=== PATIENT | male | born 1955 | race Caucasian/White ===

== ENCOUNTER → 2019-10-11 | Outpatient (CLI) | payer BC ==
[~2019-10-11] MED LIST: AMIT50TA PO; AMLO5TAB10 PO; ASPI-630 PO; ASPI325T11 PO; ATOR20TA58 PO; BUPR100T8 PO; LOSA100T14 PO; METF500T16 PO; SITA100T PO; TAMS0.4C97 PO
[2019-10-11 15:23] LABS: BASO % 0 % (0-3); EOS # 0.1 x10^3/uL (0.0-0.7); EOS % 1 % (0-3); HEMATOCRIT 44.8 % (39.0-53.0); HEMOGLOBIN 15.3 g/dL (13.0-17.5); LYMPH # 1.9 x10^3/uL (1.0-4.8); LYMPH % 23 % (24-48); MEAN CORPUSCULAR HEMOGLOBIN 29 pg (25-35); MEAN CORPUSCULAR HGB CONC 34 g/dL (31-37); MEAN CORPUSCULAR VOLUME 86 fL (79-100); MONO # 0.6 x10^3/uL (0.0-1.1); MONO % 8 % (0-9); NEUT # 5.6 x10^3/uL (1.8-7.7); NEUT % 68 % (31-73); PLATELET COUNT 184 x10^3/uL (140-400); RED BLOOD COUNT 5.23 x10^6/uL (4.30-5.70); RED CELL DISTRIBUTION WIDTH 14.1 % (11.5-14.5); WHITE BLOOD COUNT 8.2 x10^3/uL (4.0-11.0)
[2019-10-11 15:30] LABS: PROTHROMBIN TIME PATIENT 13.7 SEC (11.7-14.0)
[2019-10-11 15:42] LABS: ALBUMIN 3.7 g/dL (3.4-5.0); CALCIUM 8.9 mg/dL (8.5-10.1); CREATININE 1.7 mg/dL (0.7-1.3); GFR 40.9; POTASSIUM 4.3 mmol/L (3.5-5.1)
--- NOTE | 2019-10-11 15:45 | EKG ---
[facility] [address] [place] [address] Test Date: 2019-10-11 Test Time: 15:42:43 Pat Name: SIVAN RAMIREZ Department: Room: Gender: M Bolt Labeler: : 1955 Requested By: EDU CALLOWAY Order Number: [id number] Reading MD: Sudhir Skinner MD Measurements Intervals Cobb Rate: 82 P: 28 IN: 190 QRS: -52 QRSD: 86 T: 53 QT: 352 QTc: 414 Interpretive Statements SINUS RHYTHM Electronically Signed On 10-13-2019 11:49:42 CDT by Sudhir Skinner MD
--- NOTE | 2019-10-11 16:28 | RAD ---
CHEST PA LATERAL History: Preop right knee replacement, history of hypertension Comparison: None. Findings: 2 views of the chest are submitted. There is no infiltrate, pneumothorax, or effusion. Pericardial cardiac silhouette is within normal limits in size. Impression: 1. There is no radiographic evidence of acute cardiopulmonary disease. Electronically signed by: Toño Barlow MD (10/11/2019 4:25 PM) [id number]
[2019-10-12 07:14] LABS: HEMOGLOBIN A1C 5.6 % (4.8-5.6)
== END ==
LOC: SURGPAT 14:28
PROVIDERS: ATTEND Orthopaedic Surgery
DX: Z01.818 Encounter for other preprocedural examination (principal); M17.11 Unilateral primary osteoarthritis, right knee
CPT/HCPCS: 36415; 71046; 80048; 82040; 82306; 83036; 85025; 85610; 85651; 85730; 87641; 93005

== ENCOUNTER → 2019-10-28 | Outpatient (CLI) | payer BC | END | disposition home or self-care (01) | LOC: LAB 07:38 | PROVIDERS: ATTEND Orthopaedic Surgery | DX: Z11.59 Encounter for screening for other viral diseases (principal); M17.11 Unilateral primary osteoarthritis, right knee | CPT/HCPCS: C9803; U0003; 36415 ==

== ENCOUNTER 2019-11-01 05:44 | Inpatient (IN) | payer BC ==
--- NOTE | 2019-10-31 18:23 | PDOC1 ---
History and Physical Date of Admission Date of Admission 11/01/2019 Identification/Chief Complaint Chief Complaint Right knee osteoarthritis pain Source Source: Chart review History of Present Illness History of Present Illness Sivan is a 64-year-old man with long history of right knee pain. 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 He had a left total knee arthroplasty 10/15/[address] Geraldo Ring. He has right knee pain that bothers him every day and prevents him from walking for exercise. He had a cortisone injection into his knee that gave only temporary relief. He has chronic kidney disease and a single kidney and so NSAIDs are avoided to treat his knee pain Past Medical History Past Medical History Type 2 diabetes. Chronic kidney disease. Gout. Hypertension. Depression. Hyperglycemia. Hypogonadism. Neuropathy. Cardiovascular: HTN CENTRAL NERVOUS SYSTEM: Periperal neuropathy Psych: Depression Rheumatologic: Gout Endocrine: Diabetes Past Surgical History Past Surgical History knee replacement-Lt 2017 carpal tunnel release x3 bilat elbow surgery bunionectomy heel surgery Past Surgical History: Total knee replacement Family History Family History Type 2 diabetes mother alive Father , diabetes, heart disease Family history hypertension heart disease and diabetes Family History: Diabetes, Heart Disease, Hypertension Social History Smoke: Quit ALCOHOL: none Current Medications Current Medications Current Medications Morphine Sulfate 5 mg/Ketorolac Tromethamine 30 mg/Ropivacaine 60 ml/Epinephrine HCl 0.5 mg/Sodium Chloride 100 ml @ 100 mls/hr 1X ONCE INT ART ; Start 11/01/19 at 06:00; Stop 11/01/19 at 06:59 Ondansetron HCl (Zofran) 4 mg PRN Q6HRS PRN IV NAUSEA/VOMITING; Start 11/01/19 at 07:00; Stop 11/02/19 at 06:59 Fentanyl Citrate (Fentanyl 2ml Vial) 25 mcg PRN Q5MIN PRN IV MILD PAIN 1-3; Start 11/01/19 at 07:00; Stop 11/02/19 at 06:59 Fentanyl Citrate (Fentanyl 2ml Vial) 50 mcg PRN Q5MIN PRN IV MODERATE TO SEVERE PAIN; Start 11/01/19 at 07:00; Stop 11/02/19 at 06:59 Morphine Sulfate (Morphine Sulfate) 1 mg PRN Q10MIN PRN IV SEVERE PAIN 7-10; Start 11/01/19 at 07:00; Stop 11/02/19 at 06:59 Ringer's Solution 1,000 ml @ 30 mls/hr Q24H IV ; Start 11/01/19 at 07:00; Stop 11/01/19 at 18:59 Hydromorphone HCl (Dilaudid) 0.5 mg PRN Q10MIN PRN IV SEV PAIN, Second choice; Start 11/01/19 at 07:00; Stop 11/02/19 at 06:59 Prochlorperazine Edisylate (Compazine) 5 mg PACU PRN PRN IV NAUSEA, MRX1; Start 11/01/19 at 07:00; Stop 11/02/19 at 06:59 Acetaminophen (Tylenol) 1,000 mg 1X PREOP PRN PO PRIOR TO PROCEDURE; Start 11/01/19 at 06:00; Stop 11/01/19 at 18:00 Cefazolin Sodium 3 gm/Dextrose 100 ml @ 200 mls/hr 1X PREOP PRN IV PRIOR TO PROCEDURE; Start 11/01/19 at 06:00; Stop 11/01/19 at 18:00 Tranexamic Acid 1000 mg/Sodium Chloride 60 ml @ 60 mls/hr 1X PERIOP ONCE INJ ; Start 11/01/19 at 06:00; Stop 11/01/19 at 06:59 Tranexamic Acid 1000 mg/Sodium Chloride 60 ml @ 60 mls/hr 1X PERIOP ONCE INJ ; Start 11/01/19 at 08:00; Stop 11/01/19 at 08:59 Celecoxib (CeleBREX) 400 mg 1X PREOP PRN PO SURGERY; Start 11/01/19 at 06:00 Active Scripts Active Reported Amlodipine Besylate 5 Mg Tablet 5 Mg PO DAILY Aspirin 81 Mg Tab.chew 1 Tab PO DAILY Bupropion Hcl Sr (Bupropion Hcl) 100 Mg Tablet.er 150 Mg PO DAILY Losartan Potassium 100 Mg Tablet 100 Mg PO DAILY Flomax (Tamsulosin Hcl) 0.4 Mg Cap.er.24h 1 Cap PO DAILY Metformin Hcl 500 Mg Tablet 1,000 Mg PO DAILY Amitriptyline Hcl 50 Mg Tablet 1 Tab PO QHS Atorvastatin Calcium 20 Mg Tablet 1 Tab PO DAILY Januvia (Sitagliptin Phosphate) 100 Mg Tablet 1 Tab PO DAILY Allergies Allergies: Coded Allergies: No Known Drug Allergies (Unverified , 10/11/19) ROS Review of System OPHTHALMOLOGY: Blurred vision none. Double vision denies. Change in vision none. ENT: Hearing loss none. Change in voice denies. Rhinorrhea none. CARDIOLOGY: Palpitations none. Shortness of breath denies. Chest pain denies. CONSTITUTIONAL: Fever denies. Chills denies. Weight gain denies. Weakness none. weight loss denies. Fatigue none. GASTROENTEROLOGY: Diarrhea denies. Vomiting none. Dysphagia none. UROLOGY: Voiding normally yes. Hematuria none. MUSCULOSKELETAL: Chronic back or neck pain denies. Swelling of the feet, hands, ankles and /or legs denies. Joint pain reports. Tingling/numbness no. DERMATOLOGY: Rash denies. Lumps none. NEUROLOGY: Dizziness/lightheadedness denies. Double vision, temporary blindness denies. Tingling/numbness none. PSYCHOLOGY: Change in mood or personality denies. Memory loss none. ENDOCRINOLOGY: Obesity denies. Fatigue none. Weight loss none. HEMATOLOGY/LYMPH: Hepatitis denies. Enlarged lymph nodes denies. Physical Exam General: Alert, Cooperative HEENT: Atraumatic Lungs: Normal air movement Heart: RRR Extremities: Other (The RIGHT knee shows a slightly antalgic gait. There is slight varus alignment. No masses. No detectable effusion. Tenderness on the joint lines. Range of motion is 0-135 degrees. There is crepitus with range of motion, and pain at the extremes of motion. The knee is stable to varus and valgus stress without subluxation or laxity. Muscle strength is slightly weak for the quadriceps 4+/5 which may be due to pain or avoidance, and does not seem neurogenic, and the muscle tone and bulk is slightly decreased. The hamstring strength is 5/5. The skin is normal with no scars, rashes, lesions or ulcers. Light touch sensation is intact. No edema and no varicosities. Dorsalis pedis pulse is intact and capillary refill is normal) Skin: No breakdown, No significant lesion Neuro: Normal speech Psych/Mental Status: Mood NL Images Images Right knee images were reviewed, the report is not yet available. He has [id number] arthritis medially of the right knee with sclerosis and osteophyte formation. There is varus malalignment. Osteophytes are present in all 3 compartments. This is Kellgren Huber grade 3 osteoarthritis of the right knee. He has a left total knee arthroplasty which is likely Giovanna components, and appears well-positioned and without complication. EDU CALLOWAY 06/16/2019 02:17:59 PM COMMUNICATIONS SUPERVISOR > Report also reviewed. [facility] [address] [place] [address] IMAGING REPORT Signed PATIENT: SIVAN RAMIREZ ACCOUNT: [id number] : 1955 LOCATION: [facility] AGE: 63 SEX: M EXAM STATUS: REG CLI ORD. PHYSICIAN: EDU CALLOWAY MD REASON: PROCEDURE: KNEE RIGHT 2V EXAM: 1. KNEE STANDING BILAT AP, 2. KNEE RIGHT 2V. HISTORY: Right knee pain. COMPARISON: None. FINDINGS: A left total knee arthroplasty is in expected alignment. The right medial compartmental joint space is effaced with varus angulation. There is moderate patellofemoral joint space narrowing. No fractures are identified. There is a moderate joint effusion on the left. IMPRESSION: 1. Severe medial compartment predominant osteoarthritis of the right knee with varus angulation. 2. Left total knee arthroplasty in expected alignment. Electronically signed by: Addy Dunlap MD (06/16/2019 11:04 AM) [facility] DICTATED and SIGNED BY: STEPHANIE DUNLAP MD DATE: 06/16/19 1104 VTE Prophylaxis Ordered VTE Prophylaxis Devices: Yes VTE Pharmacological Prophylaxi: Yes Assessment/Plan Assessment/Plan He has [id number]-[id number] osteoarthritis of his right knee. We reviewed the options for treatment and I recommended total knee replacement as more conservative treatments have not been successful and he describes debilitating osteoarthritis symptoms. We discussed the potential risks of infection, neurovascular injury, fracture, bleeding, blood clots, malalignment, need for revision surgery, or other potential surgical or anesthetic complications. I recommended the robotic Navio instrumentation and we discussed my reasoning. We also discussed postoperative treatment and expectations including residual numbness over the knee and the increased risk due to diabetes. All of his questions were answered and he desires to proceed with total knee replacement. He is here today for elective right total knee arthroplasty, robotic assisted Justicifation of Admission Dx: Justifications for Admission: Justification of Admission Dx: N/A EDU CALLOWAY MD Oct 31, 2019 18:23
[2019-11-01] VITALS (9 sets, daily range): BP systolic 122–140; BP diastolic 64–86
[~2019-11-01] VITALS: Ht 186.7 cm; Wt 123.8 kg
[~2019-11-01 05:44] MED LIST changes: -ASPI325T11 PO
[2019-11-01] MEDS ORDERED: ceFAZolin SODIUM 3 GM in IV D5W 100 ML IV PRN (06:00)
[2019-11-01] MEDS ORDERED: MORPHINE SULFATE 5 MG, KETOROLAC 30MG VIAL 30 MG, ROPIVacaine 0.5% PF 60 ML, EPINEPHrin... INT ART ONE ×5 (06:00)
[2019-11-01] MEDS ORDERED: TRANEXAMIC ACID 1,000 MG in IV NS 50ML -- 1ST BAG INJ ONE (06:00)
[2019-11-01] MEDS ORDERED: CELECOXIB 100 MG CAPSULE. PO PRN (06:00)
[2019-11-01] MEDS ORDERED: ACETAMINOPHEN 500 MG TABLET PO PRN (06:00)
[2019-11-01] MEDS ORDERED: ROCURONIUM 50 MG/5 ML VIAL. ONE (06:54)
[2019-11-01] MEDS ORDERED: MIDAZOLAM HCL/PF 2 MG/2 ML VIAL. ONE (06:54)
[2019-11-01] MEDS ORDERED: GLYCOPYRROLATE 1 MG/5 ML VIAL. ONE (06:54)
[2019-11-01] MEDS ORDERED: PROPOFOL 10 MG/ML (20ML) VIAL. IV ONE (06:54)
[2019-11-01] MEDS ORDERED: NEOSTIGMINE METHYLSULFATE 5 MG/5 ML SYRINGE. ONE (06:54)
[2019-11-01] MEDS ORDERED: fentaNYL PF VIAL 100 MCG/2 ML VIAL ONE ×3 (06:54→09:12)
[2019-11-01] MEDS ORDERED: LIDOCAINE 2% PF 5 ML VIAL. ONE (06:55)
[2019-11-01] MEDS ORDERED: ONDANSETRON PF 4 MG/2 ML VIAL. ONE (06:55)
[2019-11-01] MEDS ORDERED: DEXAMETHASONE SOD PHOS 4 MG/ML VIAL ONE (06:55)
[2019-11-01] MEDS ORDERED: TOBRAMYCIN POWDER 1.2 GM VIAL. ONE (06:57)
[2019-11-01] MEDS ORDERED: VANCOMYCIN 1 GM VIAL. ONE ×2 (06:57→06:58)
[2019-11-01] MEDS: INSULIN LISPRO 100 UNIT/ML 3ML VIAL for OP,RR ONLY. SQ PRN ×3 (06:58→11:26)
[2019-11-01] MEDS ORDERED: IV RINGERS,LACTATED 1000ML 1,000 ML IV SCH (07:00)
[2019-11-01] MEDS ORDERED: ONDANSETRON PF 4 MG/2 ML VIAL. IV PRN (07:00)
[2019-11-01] MEDS ORDERED: fentaNYL PF VIAL 100 MCG/2 ML VIAL IV PRN ×2 (07:00)
[2019-11-01] MEDS ORDERED: PROCHLORPERAZINE 10 MG/2 ML VIAL. IV PRN (07:00)
[2019-11-01] MEDS ORDERED: MORPHINE SULFATE 2 MG/ML VIAL. IV PRN (07:00)
[2019-11-01] MEDS ORDERED: HYDROmorphone 2 MG/ML VIAL IV PRN (07:00)
[2019-11-01] MEDS ORDERED: PHENYLEPHRINE in 0.9% NACL PF 1 MG/10 ML SYRINGE. IV ONE (07:42)
[2019-11-01] MEDS ORDERED: TRANEXAMIC ACID 1,000 MG in IV NS 50ML -- 2ND BAG INJ ONE (08:00)
[2019-11-01] MEDS ORDERED: IV NORMAL SALINE 1000ML BAG 1,000 ML IV SCH (10:10)
--- NOTE | 2019-11-01 10:10 | PDOC4 ---
Operative Note Operative Note Date of Procedure: November 01, 2019 Pre-Op Diagnosis: Unilateral primary osteoarthritis, right knee. M17.11 Post-Op Diagnosis: same Procedure: right total knee arthroplasty with patella resurfacing, robotic assisted, CPT 51763 Surgeon: Edu Thapa MD Target Worker: ROXANNE Chambers Anesthesia: General EBL: 200 mL Specimens Obtained: right knee bone and soft tissue Complications: none Drains: Hemovac plus pain catheter Tourniquet time: 77 Minutes Tourniquet Pressure: 300 mm Hg Indications for Procedure: Knee arthritis pain, affecting quality of life, unrelieved by nonoperative management Findings: Severe osteoarthritis with bone on bone contact medially with full thickness cartilage loss in the patellofemoral and lateral compartments, eburnated bone at the medial tibiofemoral joint and at the lateral patella Implants: Enriquez & Nephew Journey II Total Knee System, Size 6 right bicruciate stabilized Journey II BCS cobalt chrome femoral component, size 5 right Journey nonporous tibial baseplate, size 5-6 11 mm right Journey II BCS XLPE articular insert, 32 mm oval Tasia II resurfacing patellar component Procedure in Detail: The patient was identified in the preoperative holding area, and the correct right lower extremity was marked by me. The patient was taken to the operating room where the patient was anesthetized by the Department of Anesthesia. Preoperative antibiotics were given intravenously. Tranexamic acid 1 g was given intravenously for intraoperative hemostasis. A "time-out" procedure was performed. The patient was positioned supine on the operative table with a tourniquet on the upper right thigh. A right hip bump and heel bump were attached to the operating table for later intraoperative positioning. The right lower limb was thoroughly scrubbed, then sterile Chloraprep solution was applied, and the limb was draped in sterile fashion. The operating team wore exhaust ventilated hoods with [employer] Personal Protection Toga Zippered Peel-Away protection system. An impervious stockinet and an adhesive drape were used such that the skin was entirely covered. The limb was exsanguinated with an Esmarch bandage, and the tourniquet was inflated. A midline skin incision was made with a scalpel using the patella and tibial tubercle as landmarks. Electrocautery was used for hemostasis. My assistant county attorney used rake retractors and a laparotomy sponge. A medial parapatellar arthrotomy incision was used with extension into the distal quadriceps tendon. The patella was retracted laterally and Hohmann retractors were now used by my assistant county attorney. Excess synovium, the menisci, and the cruciate ligaments were resected sharply. A periarticular multimodal ropivacaine anesthetic injection was used in the suprapatellar pouch and distal quadriceps muscle. The patella was everted and exposed. The patella thickness was measured with a caliper, and then cut freehand with a saw, using caliper measurements to assess the resection. The lateral retinaculum was partially released from the lateral patella using electrocautery. Rongeurs were used to make sure there were no remaining exposed patellar osteophytes medially or laterally. The patella was sized, and then drilled for an oval three-peg patella component. The tibial tracker array for the NAVIO system was applied to the tibial crest four finger breadths below the tibial tubercle, using percutaneous incisions and bicortical pins. The femoral tracker array was applied outside of the original incision using two separate stab incisions using bicortical pins. Checkpoint verification pins were applied to the femur and tibia. Using the point probe, the medial and lateral malleoli were localized and the locations were stored. The center of the tibia was noted at the anterior cruciate ligament insertion and stored. The center of the femur was marked at the intersection of Whitesidess line with the transepicondylar axis. The hip center calculation was performed with range of motion of the hip. The femur neutral position was identified, and simulated weightbearing was performed with axial compression on the foot. Range of motion without stress was performed and the data collected. Range of motion with valgus stress, and range of motion with varus stress data collection was also performed. Rotational references include the Whitesidess line, and the trans-epicondylar axis. The femoral articular surface was now mapped in 3 dimensions using the point probe and digital data collected. The tibial condyle articular surfaces and cortical edges were mapped in 3 dimensions using the point probe including the medial and lateral tibial plateau. Implant planning was now performed on-screen with manipulation of the implant sizes, cut thicknesses and gaps, component rotation, component flexion/extension and component varus/valgus until satisfactory ligament balance, alignment and stability of the knee was expected throughout the range of motion. My assistant county attorney held Hohmann retractors and an Army-Soper retractor to protect the medial and lateral collateral ligaments, the patellar tendon, the skin and the other soft tissues. The point probe was used to confirm the location of the checkpoint verification pins. The distal femoral surface was now prepared using the Anspach xiomara with footpedal, and the NAVIO handpiece for bone removal to the previously planned distal femoral resection. The crosshairs at the pin locations were marked by using a mallet and the point probe for definitive location. A 5-in-1 Journey II cutting guide was then applied and the position was checked with the virtual robert wing from the NAVIO to ensure proper placement as the pins were applied. The posterior, anterior, and all chamfer cuts were made with the oscillating saw. Excess bone was removed with an osteotome and rongeurs. The tibial cutting guide was applied, positioned using the NAVIO virtual robert wing, and secured to the upper tibia using three pins at the previously planned location. The virtual robert wing was used to confirm the resection depth, slope and coronal alignment. The upper tibia was cut made with an oscillating saw. My assistant county attorney held Hohmann retractors and a posterior cruciate ligament retractor to protect the medial and lateral collateral ligaments, the patellar tendon, the skin, the peroneal nerve and the other soft tissues. The upper tibia was sized with a trial baseplate. The posterior compartment was cleared of osteophytes and loose bodies. The periarticular anesthetic injection was used in the posterior compartment. The box cut for a posterior stabilized component was made. A preliminary reduction was performed with a trial femur, trial tibial baseplate and trial polyethylene. The NAVIO system was used to confirm range of motion, and postoperative stressed gap assessment. A medial release was required, using a 10 blade scalpel, and a Tejada elevator to elevate the medial structures from the upper medial tibia. The stability was assessed using different thicknesses of tibial articular surface to find satisfactory stability and good range of motion. The rotation of the tibial component was marked on the upper tibia. Final trial reduction was now performed verifying patella tracking and tibiofemoral stability and alignment. The bone pins and tracker arrays were removed, and the checkpoint verification pins were removed. The tibia preparation was completed with a drill, saw, and fin punch at the previously noted rotation. The final implants were verified and opened. Outer gloves were changed by the operating team. Betadine lavage was used. The bone cuts were irrigated with saline using the English TV InterPulse device and then dried with suction and laparotomy sponges. Two packages of Enriquez + Nephew Rally HV bone cement were mixed in powdered form with Vancomycin 1gm and Tobramycin 1.2 gm, and then vacuum-mixed with the monomer, and placed into a cement gun. The cut surfaces of the bone were thoroughly dried with suction and with laparotomy sponges for cement interdigitation. The final components were cemented into place. The knee was kept at full extension while the cement hardened, and excess cement was removed. The tourniquet was released, and electrocautery was used for hemostasis. . Tranexamic acid 1 g was redosed intravenously for additional intraoperative hemostasis. I had initially not planned a second dose of tranexamic acid due to his low GFR, however the surgical bleeding at this point warranted a second dose. A final periarticular anesthetic injection was used for pain relief. The bone pin sites on the tibial crest were closed with #3-0 Nylon sutures. A final check of aileu-oa-ykehho and stability was made, and the polyethylene implant final size was chosen. The polyethylene implant was secured to the tibial baseplate, and the knee was reduced a final time and range of motion and stability was confirmed. Thorough irrigation was used. A pain catheter, and a 15 Fr Hemovac were inserted. Topical Vancomycin 1 gm was used during the closure. The arthrotomy was closed with interrupted [id number] #1 Vicryl suture. The arthrotomy incision was then run with #1 STRATAFIX Symmetric PDS Plus Knotless suture. The subcutaneous tissues were approximated initially with #2-0 Vicryl inverted interrupted sutures by me and my assistant county attorney. Next the subcuticular layer was approximated in a running fashion with #3-0 STRATAFIX suture by my assistant county attorney. The skin incision was then covered and reinforced by my assistant county attorney with Acticoat, followed by a HELADIO single use negative pressure wound therapy dressing Soft roll and an Poncho wrap were applied. Needle and sponge counts were correct. There were no apparent complications. The patient returned to the recovery room in stable condition. EDU THAPA MD Nov 01, 2019 10:10
[2019-11-01] MEDS ORDERED: MORPHINE SULFATE 4 MG/ML VIAL. IVP PRN (10:15)
[2019-11-01] MEDS ORDERED: diphenhydrAMINE 50 MG/ML VIAL IVP PRN (10:15)
[2019-11-01] MEDS ORDERED: METOCLOPRAMIDE HCL 10 MG/2 ML VIAL. IVP PRN (10:15)
[2019-11-01] MEDS ORDERED: DEXTROSE 50% 25 GM / 50ML DISP.SYRIN. IV PRN (10:15)
[2019-11-01] MEDS ORDERED: 0.9 % SODIUM CHLORIDE 10 ML DISP.SYRIN. IV PRN (10:15)
[2019-11-01] MEDS ORDERED: PROCHLORPERAZINE 5 MG TABLET. PO PRN (10:15)
[2019-11-01] MEDS ORDERED: fentaNYL PF VIAL 100 MCG/2 ML VIAL IVP PRN (10:15)
[2019-11-01] MEDS ORDERED: ZOLPIDEM 5 MG TABLET. PO PRN (10:15)
[2019-11-01] MEDS ORDERED: MORPHINE SULFATE 2 MG/ML VIAL. IVP PRN (10:15)
[2019-11-01] MEDS ORDERED: CALCIUM CARBONATE 500 MG TAB.CHEW PO PRN (10:15)
[2019-11-01] MEDS ORDERED: HYDROmorphone 2 MG/ML VIAL ONE (10:23)
--- NOTE | 2019-11-01 10:38 | RAD ---
Right knee: 11/01/2019 10:10 AM. Reason for study: Postoperative right knee arthroplasty Comparison: 05/20/2019. Technique: Two views of the right knee are obtained. Findings: Screw tracks are identified within the proximal to mid tibia. There are findings consistent with recent right total knee arthroplasty, with hardware in good alignment and position. Immediate postsurgical changes within the regional soft tissues are noted. No complications are evident. Impression: Status post right total knee arthroplasty. Electronically signed by: Luli So MD (11/01/2019 10:35 AM) [facility]
[2019-11-01] MEDS: ONDANSETRON ODT 4 MG TAB.RAPDIS. PO SCH ×2 (12:00→18:00)
[2019-11-01] MEDS: ONDANSETRON PF 4 MG/2 ML VIAL. IVP SCH ×2 (12:00→18:00)
[2019-11-01] MEDS: INSULIN LISPRO 300 UNITS/3 ML VIAL. SQ SCH ×2 (12:00→17:00)
--- NOTE | 2019-11-01 12:42 | NUR ---
1215 Received from PACU per bed, alert/oriented, states discomfort level1/10, ice pack to RLE, outer Poncho wrap clean, dry & intact with Anatoly apparatus in place & functional, RADHA/ANUJ hose/SCD in place for DVT prevention, IVF infusing into left dorsal hand, IAC capped, incentive spirometry inhales up to 2500ml, oriented to surroundings, call light in reach, side rails up x 2, spouse at bedside, will continue to observe
--- NOTE | 2019-11-01 12:51 | NUR ---
Zofran iv/po held, no nausea or vomiting noted, eating lunch at present. BS 188 in PACU see op report given SSI.
[2019-11-01] MEDS: ceFAZolin SODIUM 3 GM in IV DEXTROSE 5% 100ML 100 ML IV SCH ×2 (13:19→21:01)
[2019-11-01] MEDS: fentaNYL PF VIAL 100 MCG/2 ML VIAL IVP PRN (15:59)
--- NOTE | 2019-11-01 18:15 | NUR ---
Unable to void after several attempts, bladder scan shows at least 378cc in bladder, straight cath performed received approximately 200cc of dark miguel urine returned, ambulated to bathroom with assistance to attempt to empty bladder farther, has not voided since pre-op, admitted to unit on at 1215 from PACU, has drank plenty of fluids, spouse at bedside, pt sitting on toilet at present
--- NOTE | 2019-11-01 18:48 | NUR ---
Zofran held no nausea or vomiting noted
[2019-11-01] MEDS: TAMSULOSIN 0.4 MG CAP.ER.24H. PO SCH (21:01)
[2019-11-01] MEDS: AMITRIPTYLINE HCL 25 MG TABLET. PO SCH (21:02)
[2019-11-01] MEDS: ATORVASTATIN CALCIUM 20 MG TABLET PO SCH (21:02)
[2019-11-01] MEDS: ASPIRIN ENTERIC COATED 325 MG TABLET.DR. PO SCH (21:02)
--- NOTE | 2019-11-01 23:00 | NUR ---
Voided a few drops per toilet. C/o bladder distension and discomfort. Bladder scan shows >999cc urine. Straight cathed for 1050cc with minimal resistance. "I take Flomax, I've had trouble like this before." Percocet given and ice pack placed to right knee. Call light in reach.
[2019-11-01] MEDS: oxyCODONE/APAP 5/325 1 TAB TABLET PO PRN (23:26)
--- NOTE | 2019-11-02 01:24 | NUR ---
Ambulates quickly and w/o thought to proper technique w/ walker and Hemovac, IV. Sat on toilet, "my penis valderrama, thought I had to pee." Assisted into recliner.
[2019-11-02] MEDS: ceFAZolin SODIUM 3 GM in IV DEXTROSE 5% 100ML 100 ML IV SCH (02:09)
[2019-11-02 02:48] VITALS: BP 137/74
--- NOTE | 2019-11-02 03:00 | NUR ---
Voided 75cc per urinal. States he feels the urge to urinate. Bladder scan shows 13cc. "Maybe I need to poop." States he had a colonoscopy on the .
[2019-11-02] MEDS: ONDANSETRON ODT 4 MG TAB.RAPDIS. PO SCH ×2 (05:37)
[2019-11-02] MEDS: ONDANSETRON PF 4 MG/2 ML VIAL. IVP SCH ×2 (05:37)
[2019-11-02] MEDS: oxyCODONE/APAP 5/325 1 TAB TABLET PO PRN ×4 (05:55→21:12)
[2019-11-02] MEDS ORDERED: MAGNESIUM HYDROXIDE 2,400 MG/30 ML ORAL.SUSP. PO PRN (06:00)
[2019-11-02 06:34] VITALS: BP 128/84
[2019-11-02] MEDS: INSULIN LISPRO 300 UNITS/3 ML VIAL. SQ SCH ×3 (08:00→17:00)
[2019-11-02 08:17] LABS: HEMATOCRIT 39.3 % (39.0-53.0); HEMOGLOBIN 13.6 g/dL (13.0-17.5); RED BLOOD COUNT 4.59 x10^6/uL (4.30-5.70); RED CELL DISTRIBUTION WIDTH 14.1 % (11.5-14.5); WHITE BLOOD COUNT 15.1 x10^3/uL (4.0-11.0)
--- NOTE | 2019-11-02 08:30 | NUR ---
Accidentally broke Hemovac apart, removed the remainder from site, IAC also removed, 4x4 & foam dressing applied, will continue to observe
[2019-11-02 08:53] VITALS: BP 136/85
[2019-11-02] MEDS: LOSARTAN POTASSIUM 50 MG TABLET. PO SCH (08:54)
[2019-11-02] MEDS: ASPIRIN ENTERIC COATED 325 MG TABLET.DR. PO SCH ×2 (08:54→21:12)
[2019-11-02] MEDS: LINAGLIPTIN 5 MG TABLET PO SCH (08:55)
[2019-11-02] MEDS: MULTIVITAMIN with MINERAL TABLET. PO SCH (08:55)
[2019-11-02] MEDS: amLODIPine BESYLATE 5 MG TABLET PO SCH (08:55)
[2019-11-02] MEDS: metFORMIN 500 MG TABLET PO SCH (08:55)
[2019-11-02] MEDS: buPROPion SR 150 MG TABLET.SA PO SCH (08:55)
[2019-11-02] MEDS: TAMSULOSIN 0.4 MG CAP.ER.24H. PO SCH (08:55)
[2019-11-02] MEDS: SENNOSIDES/DOCUSATE 8.6/50MG TABLET. PO SCH (08:55)
[2019-11-02] MEDS ORDERED: TAMSULOSIN 0.4 MG CAP.ER.24H. PO SCH (09:00)
[2019-11-02] MEDS ORDERED: ONDANSETRON PF 4 MG/2 ML VIAL. IVP PRN (12:00)
[2019-11-02] MEDS ORDERED: ONDANSETRON ODT 4 MG TAB.RAPDIS. PO PRN (12:00)
--- NOTE | 2019-11-02 13:10 | PDOC ---
PROGRESS NOTES Subjective Subjective Doing well, but still requiring IV pain meds for pain, in addition to oral meds. Objective Vital Signs Vital Signs Date Time Temp Pulse Resp B/P (MAP) Pulse Ox O2 Delivery O2 Flow Rate FiO2 11/02/19 12:37 Room Air 11/02/19 08:55 85 136/85 11/02/19 06:34 98.1 20 100 98.1 11/01/19 10:42 6.0 Physical Exam HELADIO dressing working. Dressing has mild bloody drainage spots. Hemovac broke before removal and the rest was removed, and pain catheter has been removed. Calf soft and NT. Homans neg. Able to DF and plantarflex foot with no evidence of neurovascular injury nor compartment syndrome. No blisters. Minimal erythema. Moderate swelling as expected. Labs Laboratory Tests Test 11/01/19 06:29 11/01/19 08:11 11/01/19 10:20 11/01/19 11:21 Glucose (Fingerstick) 111 mg/dL (70-99) 103 mg/dL (70-99) 217 mg/dL (70-99) 188 mg/dL (70-99) Test 11/01/19 16:35 11/02/19 06:30 11/02/19 08:10 11/02/19 11:41 Glucose (Fingerstick) 130 mg/dL (70-99) 132 mg/dL (70-99) 135 mg/dL (70-99) White Blood Count 15.1 x10^3/uL (4.0-11.0) Red Blood Count 4.59 x10^6/uL (4.30-5.70) Hemoglobin 13.6 g/dL (13.0-17.5) Hematocrit 39.3 % (39.0-53.0) Mean Corpuscular Volume 86 fL (79-100) Mean Corpuscular Hemoglobin 30 pg (25-35) Mean Corpuscular Hemoglobin Concent 35 g/dL (31-37) Red Cell Distribution Width 14.1 % (11.5-14.5) Platelet Count 187 x10^3/uL (140-400) Laboratory Tests Test 11/01/19 16:35 11/02/19 06:30 11/02/19 08:10 11/02/19 11:41 Glucose (Fingerstick) 130 mg/dL (70-99) 132 mg/dL (70-99) 135 mg/dL (70-99) White Blood Count 15.1 x10^3/uL (4.0-11.0) Red Blood Count 4.59 x10^6/uL (4.30-5.70) Hemoglobin 13.6 g/dL (13.0-17.5) Hematocrit 39.3 % (39.0-53.0) Mean Corpuscular Volume 86 fL (79-100) Mean Corpuscular Hemoglobin 30 pg (25-35) Mean Corpuscular Hemoglobin Concent 35 g/dL (31-37) Red Cell Distribution Width 14.1 % (11.5-14.5) Platelet Count 187 x10^3/uL (140-400) Imaging Postop x-rays and report reviewed by me. Satisfactory TKA without apparent complications. [facility] [address] [place] [address] IMAGING REPORT Signed PATIENT: SIVAN RAMIREZ ACCOUNT: [id number] : 1955 LOCATION: [address] [place] [address] AGE: 64 SEX: M EXAM STATUS: ADM IN ORD. PHYSICIAN: EDU CALLOWAY MD REASON: POST OP RIGHT KNEE ARTHROPLASTY PROCEDURE: KNEE RIGHT 2V Right knee: 11/01/2019 10:10 AM. Reason for study: Postoperative right knee arthroplasty Comparison: 05/20/2019. Technique: Two views of the right knee are obtained. Findings: Screw tracks are identified within the proximal to mid tibia. There are findings consistent with recent right total knee arthroplasty, with hardware in good alignment and position. Immediate postsurgical changes within the regional soft tissues are noted. No complications are evident. Impression: Status post right total knee arthroplasty. Electronically signed by: Saul So MD (11/01/2019 10:35 AM) [facility] DICTATED and SIGNED BY: SAUL SO MD DATE: 11/01/19 1035 Assessment Assessment POD 1 after TKA Plan Plan of Care Needs to stay in hospital for pain control at this time. Continue DVT prophylaxis and PT. Discharge planning. Justicifation of Admission Dx: Justifications for Admission: Justification of Admission Dx: N/A EDU CALLOWAY MD Nov 02, 2019 13:10
--- NOTE | 2019-11-02 13:20 | NUR ---
Notified pt/spouse of transfer to room 424, agreeable
[2019-11-02 15:00] VITALS: BP 110/68
[2019-11-02] MEDS ORDERED: BISACODYL 10 MG SUPP.RECT. PR PRN (16:00)
--- NOTE | 2019-11-02 17:06 | PATHOLOGY ---
[facility] Accession Number: [id number] . 01 Material submitted: . knee - RIGHT KNEE BONE AND TISSUE. Modifiers: right . 01 Clinical history: . OA . 02 Diagnosis: Segments of bone and soft tissue, robotic-assisted right total knee arthroplasty: - Advanced degenerative arthritis. . (JPM:mm; 11/02/2019) M 11/02/2019 1601 Local . 02 Electronically signed: . Irving Gr MD, Pathologist NPI- [id number] . 01 Gross description: . The specimen is received in formalin, labeled "Jj Perez, right knee bone and tissue" and consists of multiple segments of pink-mart bone including the tibial plateau measuring 13.8 x 12.2 x 2.5 cm. The meniscus is present. Attached is a small amount of pink-yellow soft tissue. The articular surfaces display extensive granularity and eburnation. [employer] Surve[employer] sections are submitted in A1-A2 with A2 following decalcification. (SDY; 11/01/2019) SYU/SYU 11/02/2019 1558 Local . 02 Pathologist provided ICD-10: M17.11 . 02 CPT . 296014, 435368 Specimen Comment: A courtesy copy of this report has been sent to [phone], [phone] Specimen Comment: [id number] Specimen Comment: Report sent to / DR MARCELO Performed at: 01 [facility] [address], [place] [id number] MD Simon Montana MD Phone: [phone] Performed at: 02 [facility] [address] [place], [place] [id number] MD Irving Gr MD Phone: [phone]
[2019-11-02 19:00] VITALS: BP 145/78
[2019-11-02] MEDS: AMITRIPTYLINE HCL 25 MG TABLET. PO SCH (21:12)
[2019-11-02] MEDS: ATORVASTATIN CALCIUM 20 MG TABLET PO SCH (21:12)
[2019-11-03] MEDS: oxyCODONE/APAP 5/325 1 TAB TABLET PO PRN ×5 (03:20→21:25)
[2019-11-03 07:00] VITALS: BP 134/74
[2019-11-03 07:10] LABS: HEMATOCRIT 36.2 % (39.0-53.0); HEMOGLOBIN 12.4 g/dL (13.0-17.5)
[2019-11-03] MEDS: buPROPion SR 150 MG TABLET.SA PO SCH (07:53)
[2019-11-03] MEDS: metFORMIN 500 MG TABLET PO SCH (07:53)
[2019-11-03] MEDS: MULTIVITAMIN with MINERAL TABLET. PO SCH (07:53)
[2019-11-03] MEDS: LINAGLIPTIN 5 MG TABLET PO SCH (07:53)
[2019-11-03] MEDS: TAMSULOSIN 0.4 MG CAP.ER.24H. PO SCH (07:54)
[2019-11-03] MEDS: SENNOSIDES/DOCUSATE 8.6/50MG TABLET. PO SCH (07:54)
[2019-11-03] MEDS: ASPIRIN ENTERIC COATED 325 MG TABLET.DR. PO SCH ×2 (07:58→21:24)
[2019-11-03] MEDS: amLODIPine BESYLATE 5 MG TABLET PO SCH (07:58)
[2019-11-03] MEDS: LOSARTAN POTASSIUM 50 MG TABLET. PO SCH (07:59)
[2019-11-03] MEDS: INSULIN LISPRO 300 UNITS/3 ML VIAL. SQ SCH ×3 (08:00→17:00)
[2019-11-03 11:00] VITALS: BP 114/68
[2019-11-03] MEDS: fentaNYL PF VIAL 100 MCG/2 ML VIAL IVP PRN (11:35)
--- NOTE | 2019-11-03 11:50 | NUR ---
Patient states he is having a lot more pain today. Pain 10/10 this morning which he states is throbbing and stiff. Pain after therapy this afternoon still elevated at 10/10, patient requesting IV pain medication to help with his pain until his next PO medication is due. IV pain medication given. Will monitor and given PO medication prior to next therapy if needed.
[2019-11-03 15:00] VITALS: BP 107/83
--- NOTE | 2019-11-03 15:22 | PDOC ---
PROGRESS NOTES Subjective Subjective still having pain requiring IV pain medications Objective Vital Signs Vital Signs Date Time Temp Pulse Resp B/P (MAP) Pulse Ox O2 Delivery O2 Flow Rate FiO2 11/03/19 13:35 94 Room Air 11/03/19 11:00 98.7 88 17 114/68 (83) 98.7 11/01/19 10:42 6.0 Physical Exam Bloody drainage on HELADIO. Swelling, but no blisters at this time. Calf soft and NT. Labs Laboratory Tests Test 11/01/19 16:35 11/02/19 06:30 11/02/19 08:10 11/02/19 11:41 Glucose (Fingerstick) 130 mg/dL (70-99) 132 mg/dL (70-99) 135 mg/dL (70-99) White Blood Count 15.1 x10^3/uL (4.0-11.0) Red Blood Count 4.59 x10^6/uL (4.30-5.70) Hemoglobin 13.6 g/dL (13.0-17.5) Hematocrit 39.3 % (39.0-53.0) Mean Corpuscular Volume 86 fL (79-100) Mean Corpuscular Hemoglobin 30 pg (25-35) Mean Corpuscular Hemoglobin Concent 35 g/dL (31-37) Red Cell Distribution Width 14.1 % (11.5-14.5) Platelet Count 187 x10^3/uL (140-400) Test 11/02/19 16:47 11/02/19 21:00 11/03/19 06:30 11/03/19 07:23 Glucose (Fingerstick) 112 mg/dL (70-99) 121 mg/dL (70-99) 94 mg/dL (70-99) Hemoglobin 12.4 g/dL (13.0-17.5) Hematocrit 36.2 % (39.0-53.0) Mean Corpuscular Hemoglobin Concent 34 g/dL (31-37) Test 11/03/19 11:52 Glucose (Fingerstick) 120 mg/dL (70-99) Laboratory Tests Test 11/02/19 16:47 11/02/19 21:00 11/03/19 06:30 11/03/19 07:23 Glucose (Fingerstick) 112 mg/dL (70-99) 121 mg/dL (70-99) 94 mg/dL (70-99) Hemoglobin 12.4 g/dL (13.0-17.5) Hematocrit 36.2 % (39.0-53.0) Mean Corpuscular Hemoglobin Concent 34 g/dL (31-37) Test 11/03/19 11:52 Glucose (Fingerstick) 120 mg/dL (70-99) Assessment Assessment POD# 2 Plan Plan of Care Continue IV pain meds, hopefully only oral meds by tomorrow. Dressing change and probable discharge tomorrow. Consider aspiration if still draining. Justicifation of Admission Dx: Justifications for Admission: Justification of Admission Dx: N/A EDU CALLOWAY MD Nov 03, 2019 15:22
[2019-11-03 19:00] VITALS: BP_SYST 118; BP_SYST 130; BP_DIAS 62; BP_DIAS 70
[2019-11-03] MEDS: AMITRIPTYLINE HCL 25 MG TABLET. PO SCH (21:24)
[2019-11-03] MEDS: ATORVASTATIN CALCIUM 20 MG TABLET PO SCH (21:24)
[2019-11-03 23:05] VITALS: BP 121/68
[2019-11-04] MEDS: oxyCODONE/APAP 5/325 1 TAB TABLET PO PRN ×3 (02:28→13:42)
[2019-11-04 03:05] VITALS: BP 123/58
[2019-11-04 04:29] LABS: HEMATOCRIT 32.9 % (39.0-53.0); HEMOGLOBIN 11.4 g/dL (13.0-17.5)
[2019-11-04 07:20] VITALS: BP 135/71
[2019-11-04] MEDS: INSULIN LISPRO 300 UNITS/3 ML VIAL. SQ SCH ×2 (08:00→12:00)
[2019-11-04] MEDS: LINAGLIPTIN 5 MG TABLET PO SCH (08:11)
[2019-11-04] MEDS: LOSARTAN POTASSIUM 50 MG TABLET. PO SCH (08:11)
[2019-11-04] MEDS: ASPIRIN ENTERIC COATED 325 MG TABLET.DR. PO SCH (08:11)
[2019-11-04] MEDS: amLODIPine BESYLATE 5 MG TABLET PO SCH (08:11)
[2019-11-04] MEDS: metFORMIN 500 MG TABLET PO SCH (08:12)
[2019-11-04] MEDS: buPROPion SR 150 MG TABLET.SA PO SCH (08:12)
[2019-11-04] MEDS: MULTIVITAMIN with MINERAL TABLET. PO SCH (08:12)
[2019-11-04] MEDS: TAMSULOSIN 0.4 MG CAP.ER.24H. PO SCH (08:12)
[2019-11-04] MEDS: SENNOSIDES/DOCUSATE 8.6/50MG TABLET. PO SCH (08:12)
[2019-11-04 11:08] VITALS: BP 113/49
[2019-11-04] MEDS ORDERED: ASPI325T11 PO (13:04)
--- NOTE | 2019-11-04 13:07 | SNU/HH DC ---
DISCHARGE WITH HOME HEALTH DISCHARGE INFORMATION: Discharge Date: Nov 04, 2019 Final Diagnosis: Aftercare after right total knee arthroplasty Right knee osteoarthritis Condition on Discharge: Stable CODE STATUS: Code Status: Full HOME HEALTH: Face to Face: I certify this patient is under my care and that I, or a nurse practitioner or physician's production assistant working with me, had a face to face encounter that meets the physician face to face encounter requirements with this patient on 11/04/2019 Medical Complications: S/P Joint Replacement RN For Eval/Treatment: No Physical Therapy For: Evalulation/Treatment Occupational Therapy For: Evaluation/Treatment Pt Meets Homebound Status: Unsteady balance w/ amb,, Fatigue w/ amb., Limited distance walking POST DISCHARGE ORDERS: Activity Instructions for Disc: Activity as tolerated, Avoid exertion, Walk in house, Other ROM activity Weight Bearing Status after Di: Full weight bearing, As tolerated Bathing Instructions: Shower-keep dressing dry DIET AFTER DISCHARGE: ADA Wound/Incision Care: Ice to area for comfort, Keep wound/cast CDI, Keep wound elevated, Do not change dressing TREATMENT/EQUIPMENT ORDERS: Adaptive Equipment Issued: Front wheeled walker CERTIFICATION STATEMENT: Certification Statement: Certification Statement: Based on the above finding, I certify that this patient is confined to the home and needs intermittent intermediate care, physical therapy and/or speech therapy, or continues to need occupational therapy.~ This patient is under my care, and I have initiated the establishment of the plan of care.~ This patient will be followed by myself or a community physician who will periodically review the plan of care. Home Meds Reported Medications Amlodipine Besylate (AMLODIPINE BESYLATE) 5 Mg Tablet, 5 MG PO DAILY for htn, TAB 10/11/19 Aspirin (ASPIRIN) 81 Mg Tab.chew, 1 TAB PO DAILY for heart, #30 TAB 3 Refills 10/11/19 Bupropion Hcl (BUPROPION HCL SR) 100 Mg Tablet.er, 150 MG PO DAILY for depression, TAB.SR 10/11/19 Losartan Potassium (LOSARTAN POTASSIUM) 100 Mg Tablet, 100 MG PO DAILY for HYPERTENSION, TAB 10/11/19 Tamsulosin Hcl (FLOMAX) 0.4 Mg Cap.er.24h, 1 CAP PO DAILY for prostate , #30 CAP 11 Refills 10/11/19 Metformin Hcl (METFORMIN HCL) 500 Mg Tablet, 1000 MG PO DAILY for ANTI-DIABETIC, TAB 0 Refills 10/11/19 Amitriptyline Hcl (AMITRIPTYLINE HCL) 50 Mg Tablet, 1 TAB PO QHS for RLS, #30 TAB 1 Refill 10/11/19 Atorvastatin Calcium (ATORVASTATIN CALCIUM) 20 Mg Tablet, 1 TAB PO DAILY for cholesterol, #30 TAB 5 Refills 10/11/19 Sitagliptin Phosphate (JANUVIA) 100 Mg Tablet, 1 TAB PO DAILY for diabetes, #30 TAB 5 Refills 10/11/19 EDU CALLOWAY MD Nov 04, 2019 13:07
[2019-11-04 14:53] VITALS: BP 117/63
--- NOTE | 2019-11-04 15:08 | PDOC3 ---
Discharge Summary Visit Information Date of Admission: Nov 01, 2019 Date of Discharge: Nov 04, 2019 Admitting Diagnosis: Osteoarthritis right knee. Aftercare after total knee a Brief Hospital Course Allergies Allergies Coded Allergies Type Severity Reaction Last Updated Verified No Known Drug Allergies 11/01/19 No Vital Signs Vital Signs Date Time Temp Pulse Resp B/P (MAP) Pulse Ox O2 Delivery O2 Flow Rate FiO2 11/04/19 14:53 98.7 68 16 117/63 (81) 98 Room Air 98.7 Lab Results Laboratory Tests Test 11/02/19 16:47 11/02/19 21:00 11/03/19 06:30 11/03/19 07:23 Glucose (Fingerstick) 112 mg/dL (70-99) 121 mg/dL (70-99) 94 mg/dL (70-99) Hemoglobin 12.4 g/dL (13.0-17.5) Hematocrit 36.2 % (39.0-53.0) Mean Corpuscular Hemoglobin Concent 34 g/dL (31-37) Test 11/03/19 11:52 11/03/19 16:50 11/03/19 20:12 11/04/19 03:45 Glucose (Fingerstick) 120 mg/dL (70-99) 99 mg/dL (70-99) 164 mg/dL (70-99) Hemoglobin 11.4 g/dL (13.0-17.5) Hematocrit 32.9 % (39.0-53.0) Mean Corpuscular Hemoglobin Concent 35 g/dL (31-37) Test 11/04/19 07:20 11/04/19 11:05 Glucose (Fingerstick) 101 mg/dL (70-99) 115 mg/dL (70-99) Laboratory Tests Test 11/03/19 16:50 11/03/19 20:12 11/04/19 03:45 11/04/19 07:20 Glucose (Fingerstick) 99 mg/dL (70-99) 164 mg/dL (70-99) 101 mg/dL (70-99) Hemoglobin 11.4 g/dL (13.0-17.5) Hematocrit 32.9 % (39.0-53.0) Mean Corpuscular Hemoglobin Concent 35 g/dL (31-37) Test 11/04/19 11:05 Glucose (Fingerstick) 115 mg/dL (70-99) Brief Hospital Course 64 year old who presented with knee osteoarthritis, for elective total knee arth roplasty. The patient underwent total knee arthroplasty under general anesthesia the day of admission. Perioperative antibiotics and DVT prophylaxis were used. Postoperatively physical therapy and case management were consulted. The patient progressed and is stable for discharge. Discharge Information Condition at Discharge: Stable Disposition/Orders: D/C to Home w/ HH Scheduled Amitriptyline Hcl (Amitriptyline Hcl), 1 TAB PO QHS, (Reported) Amlodipine Besylate (Amlodipine Besylate), 5 MG PO DAILY, (Reported) Aspirin (Aspirin), 1 TAB PO DAILY, (Reported) Aspirin (Aspirin Ec), 325 MG PO BID Atorvastatin Calcium (Atorvastatin Calcium), 1 TAB PO DAILY, (Reported) Bupropion Hcl (Bupropion Hcl Sr), 150 MG PO DAILY, (Reported) Losartan Potassium (Losartan Potassium), 100 MG PO DAILY, (Reported) Metformin Hcl (Metformin Hcl), 1,000 MG PO DAILY, (Reported) Sitagliptin Phosphate (Januvia), 1 TAB PO DAILY, (Reported) Tamsulosin Hcl (Flomax), 1 CAP PO DAILY, (Reported) Patient Instructions Patient Instructions Continue to weight bearing as tolerated with walker. Keep HELADIO dressing intact and dry. Follow up with Dr. Thapa's office Thursday. Call for appointment unless already scheduled. Continue enteric coated aspirin 325 mg by m outh twice a day for 30 days to prevent blood clots. Justicifation of Admission Dx: Justifications for Admission: Justification of Admission Dx: N/A EDU THAPA MD Nov 04, 2019 15:08
--- NOTE | 2019-11-04 15:36 | NUR ---
Discharge instructions given to pt/spouse with follow up with MD on Thursday, see instruction sheet for details, Anatoly dressing changed prior to dismissal, belongings taken with patient
== END 2019-11-04 15:38 | disposition home health service (06) | DRG 470 ==
LOC: SURG 05:44 → 4 SOUTHEST 10:10 → OBSVTOIN 11-02 14:15 → 4 NORTH 11-02 14:50
PROVIDERS: ADMIT Orthopaedic Surgery; ATTEND Orthopaedic Surgery
PROC: 8E0Y4CZ Robotic Assisted Procedure of Lower Extremity, Percutaneous Endoscopic Approach (ICD-10-PCS; 2019-11-01)
PROC: 0SRC0J9 Replacement of Right Knee Joint with Synthetic Substitute, Cemented, Open Approach (ICD-10-PCS; principal; 2019-11-01 07:10)
DX: M17.11 Unilateral primary osteoarthritis, right knee (principal); E11.22 Type 2 diabetes mellitus with diabetic chronic kidney disease; I12.9 Hypertensive chronic kidney disease with stage 1 through stage 4 chronic kidney disease, or unspecified chronic kidney disease; Z79.82 Long term (current) use of aspirin; Z82.49 Family history of ischemic heart disease and other diseases of the circulatory system; Z83.3 Family history of diabetes mellitus; Z96.652 Presence of left artificial knee joint; Z79.899 Other long term (current) drug therapy
CPT/HCPCS: 36415; 73560; 82962; 85014; 85018; 85027; 86850; 86900; 86901; 88305; 88311; A7015; C1713; G0378; G0379; J0171; J0690; J1100; J1170; J1815; J1885; J2250; J2270; J2370; J2405; J2704; J2710; J2795; J3010; J3260; J3370; J3490; J7030; J7060; J7120; 97110-GP; 97116-GP; 97150-GP; 97530-GO; 97535-GO; A4461; C1769; C1776